=== PATIENT | male | born 1990 | race Two or more races ===

== ENCOUNTER 2020-10-28 12:14 | Outpatient (CLI) | payer MEDICAID | END 2020-10-28 23:59 | disposition home or self-care (01) | LOC: LAB 12:14 | PROVIDERS: ATTEND Student in an Organized Health Care Education/Training Program | DX: Z01.812 Encounter for preprocedural laboratory examination (principal); Z20.822 Contact with and (suspected) exposure to COVID-19 | CPT/HCPCS: 87426; C9803 ×2; U0003 ==

== ENCOUNTER 2020-11-02 11:58 | Day surgery (SDC) | payer MEDICAID ==
[2020-11-02] MEDS ORDERED: BUPIVACAINE 0.5 % PF 150 MG/30 ML VIAL ONE (12:23)
[2020-11-02] MEDS ORDERED: EPINEPHRINE (1:1000) 1 MG/ML AMPUL ONE (12:23)
[2020-11-02] MEDS ORDERED: FENTANYL PF 250MCG/5ML AMPUL ONE ×2 (12:55)
[2020-11-02] MEDS ORDERED: MIDAZOLAM HCL 2 MG/2ML VIAL ONE (12:55)
[2020-11-02] MEDS ORDERED: HYDROMORPHONE INJ 2 MG/ML DISP.SYRIN ONE (12:56)
[2020-11-02] MEDS ORDERED: BUPIVACAINE 0.25% 75 MG/30 ML VIAL ONE (12:56)
[2020-11-02] MEDS ORDERED: FAMOTIDINE/PF INJ 20 MG/2 ML VIAL IV ONE (12:57)
[2020-11-02 13:12] LABS: BASOPHILS # (AUTO) 0.1 /CMM (0.0-0.2); BASOPHILS % (AUTO) 0.8 % (0.0-2.0); EOSINOPHILS % (AUTO) 2.5 % (0.0-6.0); HEMATOCRIT 48 % (39-51); LYMPHOCYTES # (AUTO) 2.7 /CMM (0.8-4.8); LYMPHOCYTES % (AUTO) 26.8 % (20.0-44.0); MEAN CORPUSCULAR HGB CONC 33 g/dl (31.0-36.0); MEAN CORPUSCULAR VOLUME 91 fL (80-96); MONOCYTES # (AUTO) 0.9 /CMM (0.1-1.30); MONOCYTES % (AUTO) 9.2 % (2.0-12.0); NEUTROPHILS # (AUTO) 6.2 /CMM (1.8-8.9); NEUTROPHILS % (AUTO) 60.7 % (43.0-81.0); PLATELET COUNT (AUTO) 239 /CMM (150-450); RED BLOOD CELL COUNT(AUTO) 5.28 MIL/uL (4.5-6.0); WHITE BLOOD COUNT (AUTO) 10.2 K/uL (4.3-11.0)
[2020-11-02 13:26] LABS: BILIRUBIN,URINE SMALL (NEGATIVE); COLOR,URINE YELLOW (YELLOW); LEUKOCYTE ESTERASE ,URINE NEGATIVE (NEGATIVE); NITRITE, URINE NEGATIVE (NEGATIVE); PROTEIN,URINE NEGATIVE (NEGATIVE); UGLUCOSE NEGATIVE (NEGATIVE); UROBILINOGEN,URINE 0.2 EU/dL (0.2)
[2020-11-02 13:43] LABS: CALCIUM, SERUM 9.4 mg/dL (8.5-10.1); CREATININE 0.8 mg/dL (0.6-1.3); POTASSIUM 4.7 mmol/L (3.5-5.1)
[2020-11-02] MEDS ORDERED: GLYCOPYRROLATE 0.2 MG/ML VIAL ONE (15:00)
== END 2020-11-02 18:20 | disposition home or self-care (01) ==
LOC: DS 11:58
PROVIDERS: ATTEND Student in an Organized Health Care Education/Training Program
DX: S43.432A Superior glenoid labrum lesion of left shoulder, initial encounter (principal); X58.XXXA Exposure to other specified factors, initial encounter; Y93.9 Activity, unspecified; Y92.89 Other specified places as the place of occurrence of the external cause; Y99.8 Other external cause status; E66.01 Morbid (severe) obesity due to excess calories; K21.9 Gastro-esophageal reflux disease without esophagitis
CPT/HCPCS: 29806; 36415; 80048; 81003; 85025; 85610; 85730; 86850; A4217; C1713; J0171; J0690; J1170; J1885; J2250; J2704; J2765; J3010 ×2; J3490 ×5